=== PATIENT | female | born 1975 | race Two or more races ===

== ENCOUNTER → 2017-01-20 | Outpatient (REF) | payer OTHER, SELFPAY | LOC: M SFHCLERA 15:21 | PROVIDERS: ATTEND Nurse Practitioner Family | DX: Z02.1 Encounter for pre-employment examination (principal) ==

== ENCOUNTER → 2017-04-06 | Outpatient (REF) | LOC: M LAB 12:08 | PROVIDERS: ATTEND Nurse Practitioner Adult Health | DX: Z02.9 Encounter for administrative examinations, unspecified (principal) ==

== ENCOUNTER → 2018-12-29 | Outpatient (CLI) | payer OTHER ==
--- NOTE | 2018-12-29 13:54 | REP ---
LEFT KNEE SERIES, FIVE VIEWS: There is no evidence of an acute fracture, dislocation or intrinsic bone disease. IMPRESSION: No fracture or dislocation. Electronically Signed by Landon Rollins MD 12/29/2018 04:43 P
== END ==
LOC: M LRY 12:01
PROVIDERS: ATTEND Nurse Practitioner Family
DX: M25.562 Pain in left knee (principal)